=== PATIENT | female | born 1945 | race Caucasian/White ===

== ENCOUNTER 2016-10-02 05:38 | Day surgery (SDC) | payer MEDICARE, BC ==
[~2016-10-02] VITALS: Ht 165.1 cm; Wt 130.0 kg
[~2016-10-02 05:38] MED LIST: AMLO5TAB2 PO; CELE200C PO; DICL100G29 TP; GLIP5TAB10 PO; LEVO125T PO; LOSA100T6 PO; METF10002 PO; METO25TA91 PO; OMEP-110 PO; SAXA5TAB PO; SIMV20TA3 PO
[2016-10-02 06:26] VITALS: BP 171/103
[2016-10-02] MEDS ORDERED: NEOMY/POLYMYXIN B GU IRR. 1 ML IRRIG ONE (06:51)
[2016-10-02] MEDS ORDERED: BUPIVACAINE/PF-EPI 0.25% 1:200K ONE (06:51)
[2016-10-02] MEDS ORDERED: FENTANYL PF 250 MCG/5ML ONE ×2 (06:57→06:58)
[2016-10-02] MEDS ORDERED: SCOPOLAMINE PATCH, 1.5MG PATCH.TD72 TD ONE ×2 (06:57)
[2016-10-02] MEDS ORDERED: LACTATED RINGERS 1,000 ML IV SCH (07:06)
[2016-10-02] MEDS ORDERED: ONDANSETRON 2MG/ML, 2ML ONE (07:27)
[2016-10-02] MEDS ORDERED: NEOSTIGMINE 1 MG/ML, 10ML ONE (07:27)
[2016-10-02] MEDS ORDERED: PROPOFOL 10 MG/ML, 20ML ONE (07:27)
[2016-10-02] MEDS ORDERED: CEFAZOLIN 1,000 MG ONE (07:27)
[2016-10-02] MEDS ORDERED: ROCURONIUM 10 MG/ML ONE (07:27)
[2016-10-02] MEDS ORDERED: GLYCOPYRROLATE 0.2MG/1ML ONE (07:27)
[2016-10-02] MEDS ORDERED: HYDROmorphone 1 MG/ML, 1ML IV PRN (08:30)
[2016-10-02] MEDS ORDERED: ALBUTEROL SULFATE 2.5 MG/3 ML NPPB PRN (08:30)
[2016-10-02] MEDS ORDERED: METOPROLOL 1 MG/ML, 5ML IV PRN (08:30)
[2016-10-02] MEDS ORDERED: OXYcodone 5 MG/5 ML ORAL.SOL UDC PO PRN (08:30)
[2016-10-02] MEDS ORDERED: ACETAMINOPHEN 325 MG TABLET PO PRN (08:30)
[2016-10-02] MEDS ORDERED: EPHEDRINE 50 MG/ML, 1ML IVPush PRN (08:30)
[2016-10-02] MEDS ORDERED: PROMETHAZINE 25 MG/ML, 1ML IV PRN (08:30)
[2016-10-02] MEDS ORDERED: hydrALAzine 20 MG/ML, 1ML IV PRN (08:30)
[2016-10-02] MEDS ORDERED: LABETALOL 5MG/ML, 20ML IV PRN (08:30)
[2016-10-02] MEDS ORDERED: ONDANSETRON 2MG/ML, 2ML IVPush PRN (08:30)
[2016-10-02] MEDS ORDERED: ACETAMINOPHEN 325 MG TABLET ONE (09:25)
[2016-10-02] MEDS ORDERED: FENTANYL PF 100 MCG/2ML ONE (09:25)
[2016-10-02] MEDS ORDERED: OXYcodone 5 MG/5 ML ORAL.SOL UDC ONE (09:26)
[2016-10-02] MEDS: FENTANYL PF 100 MCG/2ML IV PRN ×2 (09:30→09:40)
== END 2016-10-02 12:30 | disposition home or self-care (01) ==
LOC: OUT 05:38
PROVIDERS: ATTEND Obstetrics & Gynecology Female Pelvic Medicine and Reconstructive Surgery
DX: C54.1 Malignant neoplasm of endometrium (principal); D25.9 Leiomyoma of uterus, unspecified; I10 Essential (primary) hypertension; E78.5 Hyperlipidemia, unspecified; E03.9 Hypothyroidism, unspecified; E66.01 Morbid (severe) obesity due to excess calories; Z68.42 Body mass index [BMI] 45.0-49.9, adult; E11.8 Type 2 diabetes mellitus with unspecified complications; G47.33 Obstructive sleep apnea (adult) (pediatric); M17.11 Unilateral primary osteoarthritis, right knee; E55.9 Vitamin D deficiency, unspecified
CPT/HCPCS: 58552; 82962; 88307; J0690; J2405; J2704; J2710; J3010; J3490